=== PATIENT | female | born 1995 | race Caucasian/White ===

== ENCOUNTER 2016-11-05 19:28 | Emergency (ER) | payer SELFPAY ==
--- NOTE | ~2016-11-05 | EKG ---
PATIENT: STEFAN MUIR UNIT #: [id number] Ventricular Rate: 62 BPM Atrial Rate: 62 BPM P-R Interval: 160 ms QRS Duration: 72 ms Q-T Interval: 372 ms QTC Calculation(Bezet): 377 ms P [place]: 37 degrees Calculated R [place]: 36 degrees Calculated T [place]: 29 degrees Diagnosis Line: Normal sinus rhythm with sinus arrhythmia Diagnosis Line: Possible Left atrial enlargement Diagnosis Line: T wave abnormality, consider anterior ischemia Diagnosis Line: Abnormal ECG Diagnosis Line: No previous ECGs available Diagnosis Line: Confirmed by VENTURA VILLANUEVA MD ([id number]) on Diagnosis Line: 11/12/2016 9:00:26 AM INTERPRETING MD: KAY GUY
--- NOTE | ~2016-11-05 | CR63 ---
[facility] A Service of [facility] RADIOLOGY TEXT RESULTS PATIENT: STEFAN MUIR LOCATION: SED : 95 UNIT #: [id number] AGE: [address]: Xu Diaz MD SEX: F ORDER DR: [id number] [address] [address] [id number] MR#: [id number] Acc #: [id number] NAME: STEFAN MUIR : 1995 SEX: F STUDY DATE/TIME: 11/05/2016 20:11 UNIT: SED ROOM: STUDY DESCRIPTION: CR Chest 2 View Attending Physician: Xu Diaz M.D. Ordering Physician: Xu Diaz M.D. Primary Care Physician: Romel Green M.D. MEDICAL IMAGING REPORT This report is preliminary unless electronic signature is present. EXAM Two views chest, 11/05/16. HISTORY Chest pain. Depression/anxiety. Chest pain 2 hours tonight. FINDINGS PA and lateral radiographs of the chest are presented. No prior studies available for comparison at the time of this dictation. Heart and mediastinum are normal in size and contour. The lungs are moderately well inflated with no evidence of acute pulmonary disease, pleural effusion, or pneumothorax. No suspicious nodule. Visualized upper abdomen unremarkable. The bony structures are unremarkable. Dictated by... Andrey Benz M.D. THIS IS AN ELECTRONICALLY VERIFIED REPORT Andrey Benz M.D. at 11/06/2016 10:49 PM NOMI/osiel TD: 11/06/2016 10:48 JOB #: [id number] MEDICAL IMAGING REPORT Page 1 of 1
[~2016-11-05 19:28] MED LIST: IBUPROFEN PO; IBUPROFEN800 MG PO; MOTRIN400 MG PO; MOTRIN600 MG PO; NEXIUM PO; PHENERGAN PO; PHENERGAN PR; ULTRAM PO; VICODIN 5/500 T1 TAB PO
== END 2016-11-05 21:54 | disposition home or self-care (01) ==
LOC: SED 19:28
DX: M94.0 Chondrocostal junction syndrome [Tietze] (principal); F41.9 Anxiety disorder, unspecified
CPT/HCPCS: 71020; 93005; 99285